=== PATIENT | male | born 1970 | race Caucasian/White ===

== ENCOUNTER 2016-05-14 00:22 | Emergency (ER) | payer SELFPAY ==
[~2016-05-14] VITALS: Ht 180.3 cm; Wt 90.9 kg
[2016-05-14 00:22] VITALS: TEMP 96.9
[2016-05-14] MEDS ORDERED: DILANTIN KAPSEA30 MG PO (00:31)
[2016-05-14 00:57] LABS: BASO # 0.1 (0.0-0.2); BASO % 0.8 % (0.0-2.0); EOS # 0.7 (0.0-0.7); EOS % 6.3 % (0-4.0); GRAN # 5.8 (1.4-6.5); GRAN % 51.6 % (42.2-75.2); HEMOGLOBIN 15.6 g/dl (13.5-18.0); LYMPH # 3.9 (1.2-3.4); LYMPH % 34.5 % (20.0-51.0); MEAN CELL VOLUME 96 fl (80.0-100.0); MEAN CORPUSCULAR HEMOGLOBIN 33 pg (27.0-31.0); MEAN CORPUSCULAR HGB CONC 35 g/dl (33.0-37.0); MEAN PLATELET VOLUME 10.1 fl (7.4-10.4); MONO # 0.7 (0.1-0.6); MONO % 6.4 % (1.7-9.3); PLATELET COUNT 228 K/mm3 (130-400); REDCELL DISTRIBUTION WIDTH-CV 13.6 % (11.5-14.5); WHITE BLOOD COUNT 11.2 K/mm3 (4.8-10.8)
[2016-05-14 01:07] LABS: ADJUSTED CALCIUM 8.8 mg/dL (8.4-10.2); ALANINE AMINOTRANSFERASE 35 U/L (21-72); ALBUMIN 4.7 gm/dL (3.5-5.0); ALKALINE PHOSPHATASE 86 U/L (50-136); ANION GAP 18 mmol/L (7-16); BILIRUBIN,TOTAL 0.5 mg/dL (0.0-1.0); BLOOD UREA NITROGEN 11 mg/dL (9-20); CALCIUM 9.4 mg/dL (8.4-10.2); CARBON DIOXIDE 21 mmol/L (22-30); CHLORIDE 106 mmol/L (98-107); GLUCOSE 104 mg/dL (74-106); POTASSIUM 3.7 mmol/L (3.4-5.0); SODIUM 144 mmol/L (137-145); TOTAL PROTEIN 8.5 gm/dL (6.4-8.2)
[2016-05-14] MEDS ORDERED: CEPHALEXIN500 M1 PO (03:32)
[2016-05-14] MEDS ORDERED: NORCO 325 MG-51 TAB PO (03:32)
[2016-05-14 04:08] VITALS: BP 122/86; PULSE 82
== END 2016-05-14 04:10 | disposition home or self-care (01) ==
LOC: COL.ER 00:22
PROVIDERS: Emergency Medicine
DX: S62.395A Other fracture of fourth metacarpal bone, left hand, initial encounter for closed fracture (principal); S01.311A Laceration without foreign body of right ear, initial encounter; S01.81XA Laceration without foreign body of other part of head, initial encounter; F10.129 Alcohol abuse with intoxication, unspecified; Y90.8 Blood alcohol level of 240 mg/100 ml or more; V19.88XA Pedal cyclist (driver) (passenger) injured in other specified transport accidents, initial encounter; Y93.55 Activity, bike riding; Y92.488 Other paved roadways as the place of occurrence of the external cause
CPT/HCPCS: J3010

== ENCOUNTER 2018-01-29 21:34 | Observation (INO) | payer SELFPAY ==
[~2018-01-29] VITALS: Ht 188 cm; Wt 90.0 kg
[~2018-01-29 21:34] MED LIST: CEPHALEXIN500 M1 PO; DILANTIN KAPSEA30 MG PO; NORCO 325 MG-51 TAB PO
[2018-01-29 22:07] LABS: BASO # 0.1 (0.0-0.2); BASO % 0.8 % (0.0-2.0); EOS # 0.1 (0.0-0.7); EOS % 1.1 % (0-4.0); GRAN # 5.5 (1.4-6.5); GRAN % 66.1 % (42.2-75.2); HEMATOCRIT 44.1 % (42.0-52.0); HEMOGLOBIN 15.1 g/dl (13.5-18.0); LYMPH # 1.8 (1.2-3.4); LYMPH % 21.7 % (20.0-51.0); MEAN CELL VOLUME 101 fl (80.0-100.0); MEAN CORPUSCULAR HEMOGLOBIN 35 pg (27.0-31.0); MEAN CORPUSCULAR HGB CONC 34 g/dl (33.0-37.0); MEAN PLATELET VOLUME 9.2 fl (7.4-10.4); MONO # 0.8 (0.1-0.6); MONO % 9.7 % (1.7-9.3); PLATELET COUNT 320 K/mm3 (130-400); RED BLOOD COUNT 4.35 M/mm3 (4.20-5.60); REDCELL DISTRIBUTION WIDTH-CV 12.5 % (11.5-14.5)
[2018-01-29 22:19] LABS: BILIRUBIN,TOTAL 0.3 mg/dL (0.0-1.0); CALCIUM 8.7 mg/dL (8.4-10.2); CREATININE, serum 0.71 mg/dL (0.66-1.25); POTASSIUM 3.9 mmol/L (3.4-5.0); TOTAL PROTEIN 7.4 gm/dL (6.4-8.2)
[2018-01-29 22:34] LABS: PROLACTIN 28.7 ng/mL (3.7-17.9)
[2018-01-29 23:11] LABS: COLLECTION METHOD CLEAN CATCH
[2018-01-29 23:17] LABS: PH 5 (5-8); SQUAMOUS EPITHELIAL None Seen /hpf; URINE APPEARANCE Clear; URINE BACTERIA None Seen /hpf; URINE BILIRUBIN Negative (NEGATIVE); URINE BLOOD Negative (NEGATIVE); URINE COLOR Straw; URINE GLUCOSE Negative (NEGATIVE); URINE KETONE Negative (NEGATIVE); URINE LEUKOCYTE ESTERASE Negative (NEGATIVE); URINE NITRATE Negative (NEGATIVE); URINE PROTEIN(semi-quant) Negative (NEGATIVE); URINE RBC 0-2 /hpf; URINE UROBILINOGEN Negative (NEGATIVE)
[2018-01-29] MEDS ORDERED: KEPPRA 500MG500 MG PO (23:21)
[2018-01-30] VITALS (10 sets, daily range): BP systolic 93–110; BP diastolic 51–76; PULSE 56–76; TEMP 97.9–98.9
[2018-01-30 07:49] LABS: BASO # 0.1 (0.0-0.2); EOS # 0.1 (0.0-0.7); EOS % 1.8 % (0-4.0); GRAN # 3.1 (1.4-6.5); GRAN % 51.2 % (42.2-75.2); HEMATOCRIT 40.7 % (42.0-52.0); HEMOGLOBIN 13.5 g/dl (13.5-18.0); LYMPH % 33.6 % (20.0-51.0); MEAN CELL VOLUME 104 fl (80.0-100.0); MEAN CORPUSCULAR HEMOGLOBIN 35 pg (27.0-31.0); MEAN CORPUSCULAR HGB CONC 33 g/dl (33.0-37.0); MEAN PLATELET VOLUME 9.3 fl (7.4-10.4); MONO # 0.7 (0.1-0.6); MONO % 12.1 % (1.7-9.3); PLATELET COUNT 272 K/mm3 (130-400); REDCELL DISTRIBUTION WIDTH-CV 12.6 % (11.5-14.5)
[2018-01-30 08:02] LABS: ALBUMIN 3.1 gm/dL (3.5-5.0); BILIRUBIN,DIRECT 0.3 mg/dL (0.0-0.4); BILIRUBIN,TOTAL 0.3 mg/dL (0.0-1.0); CALCIUM 7.8 mg/dL (8.4-10.2); CREATININE, serum 0.69 mg/dL (0.66-1.25); POTASSIUM 4.3 mmol/L (3.4-5.0); TOTAL PROTEIN 6.1 gm/dL (6.4-8.2)
[2018-01-31 02:29] VITALS: BP 109/71; PULSE 51; TEMP 98.5
[2018-01-31 03:59] VITALS: BP 119/58; PULSE 70; TEMP 98.1
[2018-01-31 05:00] VITALS: BP 111/75; PULSE 55; TEMP 98.5
[2018-01-31 07:09] LABS: BASO % 0.9 % (0.0-2.0); EOS # 0.1 (0.0-0.7); EOS % 1.5 % (0-4.0); GRAN # 2.9 (1.4-6.5); GRAN % 62.8 % (42.2-75.2); HEMATOCRIT 38.5 % (42.0-52.0); LYMPH # 1.1 (1.2-3.4); MEAN CELL VOLUME 102 fl (80.0-100.0); MEAN CORPUSCULAR HEMOGLOBIN 35 pg (27.0-31.0); MEAN CORPUSCULAR HGB CONC 34 g/dl (33.0-37.0); MEAN PLATELET VOLUME 9.7 fl (7.4-10.4); MONO # 0.5 (0.1-0.6); MONO % 11.4 % (1.7-9.3); PLATELET COUNT 257 K/mm3 (130-400); RED BLOOD COUNT 3.76 M/mm3 (4.20-5.60); REDCELL DISTRIBUTION WIDTH-CV 12.5 % (11.5-14.5)
[2018-01-31 07:23] LABS: BILIRUBIN,TOTAL 0.4 mg/dL (0.0-1.0); CALCIUM 8.5 mg/dL (8.4-10.2); CREATININE, serum 0.65 mg/dL (0.66-1.25); POTASSIUM 4.2 mmol/L (3.4-5.0); TOTAL PROTEIN 5.9 gm/dL (6.4-8.2)
[2018-01-31 07:59] VITALS: BP 105/65; PULSE 62; TEMP 98
[2018-01-31 10:07] VITALS: BP 102/63; PULSE 81; TEMP 97.7
[2018-01-31] MEDS ORDERED: CLEOCIN HCL300 MG PO (10:19)
[2018-01-31] MEDS ORDERED: OMNICEF 300MG300 MG PO (10:20)
[2018-01-31] MEDS ORDERED: KEPPRA 500MG500 MG PO (10:20)
== END 2018-01-31 12:17 | disposition home or self-care (01) ==
LOC: COL.ER 21:34 → MEDICAL 01-30 00:12
PROVIDERS: Family Medicine; Nurse Practitioner; Physician Assistant
DX: R56.9 Unspecified convulsions (principal); J18.8 Other pneumonia, unspecified organism; F10.10 Alcohol abuse, uncomplicated; R74.0 Nonspecific elevation of levels of transaminase and lactic acid dehydrogenase [LDH]; F17.210 Nicotine dependence, cigarettes, uncomplicated; Z87.820 Personal history of traumatic brain injury; Z83.3 Family history of diabetes mellitus; Z91.048 Other nonmedicinal substance allergy status
CPT/HCPCS: G0378; J0696; J1650; J1885; J1953; J2405; J3411; J3475; J7030

== ENCOUNTER → 2018-02-21 | Outpatient (REF) ==
[~2018-02-21] MED LIST changes: +CLEOCIN HCL300 MG PO; +KEPPRA 500MG500 MG PO; +OMNICEF 300MG300 MG PO
== END ==
LOC: ZLAB.WCH 18:08
DX: Z01.89 Encounter for other specified special examinations (principal)